=== PATIENT | male | born 1990 | race African-American/Black ===

== ENCOUNTER 2016-07-20 14:59 | Emergency (ER) | payer SELFPAY ==
[2016-07-20] MEDS ORDERED: LIDOCAINE 1% INJ-PF (10 MG/ML) 30 ML SDV INJ ONE (16:23)
[2016-07-20] MEDS ORDERED: AZITHROMYCIN 250 MG TABLET PO ONE (16:24)
--- NOTE | 2016-07-20 16:31 | ER Document Report ---
HPI - HPI Patient complains to provider of: burning with urination, cyst on left cheek Onset: Other Onset/Duration: Gradual Quality of pain: Burning Severity: Moderate Pain Level: 4 Context: Patient states he was told about one month ago by partner had an STD. Patient states he thinks he was told it was trichomonas. Patient states he just started having penile burning with urination 2-3 days ago, denies discharge. Also has a cyst underneath the skin on right cheek which has been there for several years. Would like it cut out today. Associated Symptoms: None Exacerbated by: Other - VOIDING Relieved by: Denies Similar symptoms previously: Yes Recently seen / treated by doctor: No - ROS ROS below otherwise negative: Yes Systems Reviewed and Negative: Yes All other systems reviewed and negative - CONSTITUTIONAL Constitutional: DENIES: Fever - EENT EENT: DENIES: Congestion - NEURO Neurology: DENIES: Headache - CARDIOVASCULAR Cardiovascular: DENIES: Chest pain - RESPIRATORY Respiratory: DENIES: Trouble Breathing - GASTROINTESTINAL Gastrointestinal: DENIES: Abdominal Pain - URINARY Urinary: REPORTS: Dysuria - MUSCULOSKELETAL Musculoskeletal: REPORTS: Extremity pain - DERM Skin Color: Normal Skin Problems: Cyst - LEFT CHEEK Past Medical History - General Information source: Patient - Social History Smoking Status: Current Some Day Smoker Chew tobacco use (# tins/day): No Frequency of alcohol use: Occasional Drug Abuse: None Lives with: Family Family History: Reviewed & Not Pertinent Patient has suicidal ideation: No Patient has homicidal ideation: No Pulmonary Medical History: Reports: Hx Tuberculosis - as child Renal/ Medical History: Denies: Hx Peritoneal Dialysis Surgical Hx: Negative - Immunizations Immunizations up to date: Yes Hx Diphtheria, Pertussis, Tetanus Vaccination: Yes Vertical Provider Document - CONSTITUTIONAL Agree With Documented VS: Yes Exam Limitations: No Limitations General Appearance: WD/WN, No Apparent Distress - INFECTION CONTROL TRAVEL OUTSIDE OF THE [place] IN LAST 30 DAYS: No - HEENT HEENT: Atraumatic, Normocephalic - RESPIRATORY Respiratory: Breath Sounds Normal, No Respiratory Distress O2 Sat by Pulse Oximetry: 98 - CARDIOVASCULAR Cardiovascular: Regular Rate, Regular Rhythm - GI/ABDOMEN Gastrointestinal: Abdomen Soft, Abdomen Non-Tender, Normal Bowel Sounds - MUSCULOSKELETAL/EXTREMETIES Musculoskeletal/Extremeties: BRENNON GRIER - NEURO Level of Consciousness: Awake, Alert, Appropriate - DERM Integumentary: Warm, Dry - Hard mobile cyst under skin over left cheek bone. No redness. Course - Vital Signs Vital signs: Temp Pulse Resp BP Pulse Ox 97.2 F 54 L 18 124/75 98 07/20/16 15:20 07/20/16 15:20 07/20/16 15:20 07/20/16 15:20 07/20/16 15:20 Discharge - Discharge Clinical Impression: Dysuria, STD exposure, Cyst, Gonorrhea Condition: Good Disposition: HOME, SELF-CARE Additional Instructions: Call back between 7:30 and 8 PM at [phone] for results of STD testing. You have been treated. Use condoms to prevent STDs Follow-up with [facility] for healthcare needs, and possible referral to dermatology or surgery for evaluation of cyst under skin over left cheek bone. Return as needed Prescriptions: Metronidazole [Flagyl 500 mg Tablet] 500 mg PO ONCE #4 tablet
[2016-07-20] MEDS ORDERED: CEFTRIAXONE INJ 250 MG VIAL IM ONE (16:42)
[2016-07-20 16:51] LABS: APPEARANCE,URINE CLEAR; BILIRUBIN,URINE NEGATIVE (NEGATIVE); GLUCOSE, URINE NEGATIVE (NEGATIVE); KETONES,URINE NEGATIVE (NEGATIVE); LEUKOCYTE ESTERASE,URINE SMALL (NEGATIVE); NITRITE,URINE NEGATIVE (NEGATIVE); PROTEIN,URINE NEGATIVE (NEGATIVE); URINE SPECIFIC GRAVITY 1.019; UROBILINOGEN,URINE NEGATIVE mg/dL (<2.0)
[2016-07-20 17:01] VITALS: BP 122/68
[2016-07-20 18:15] LABS: CHLAM PCR NOT DETECTED (NOT DETECT)
== END 2016-07-20 15:58 | disposition home or self-care (01) ==
LOC: ER 14:59
DX: A54.9 Gonococcal infection, unspecified (principal); L72.9 Follicular cyst of the skin and subcutaneous tissue, unspecified; F17.200 Nicotine dependence, unspecified, uncomplicated; R30.0 Dysuria
CPT/HCPCS: 99283; 96372; 81001; 87491; 87591; J3490; J0696

== ENCOUNTER 2016-10-06 01:14 | Emergency (ER) | payer SELFPAY | END 2016-10-06 03:28 | disposition left against medical advice (07) | LOC: ER 01:14 | DX: Z53.21 Procedure and treatment not carried out due to patient leaving prior to being seen by health care provider (principal) ==

== ENCOUNTER 2016-10-06 09:43 | Emergency (ER) | payer SELFPAY ==
--- NOTE | 2016-10-06 10:23 | ER Document Report ---
ED Medical Screen (RME) - General Chief Complaint: Headache Stated Complaint: HEAD PAIN Time Seen by Provider: 10/06/16 10:16 Mode of Arrival: Ambulatory Information source: Patient, [facility] Records TRAVEL OUTSIDE OF THE [place] IN LAST 30 DAYS: No - HPI Onset: Last week Onset/Duration: Gradual, Constant Quality of pain: Dull, Sharp Associated Symptoms: None Exacerbated by: Denies Similar symptoms previously: Yes Recently seen / treated by doctor: No Notes: 10/06/16 10:22 Patient is a 26-year-old male who has had a 1-1/2 week history of right-sided frontal headache. Patient came to the emergency department last night for same and left without being seen. Patient returns today for continued headache. Patient also reports some visual changes in the right eye. No focal neurologic complaints. No nausea vomiting. Patient does not have prior history of migraine headaches. Patient was able to drive himself to the emergency department without any difficulty. - Related Data Allergies/Adverse Reactions: No Known Allergies Allergy (Verified 10/06/16 09:53) Past Medical History - General Information source: Patient, [facility] Records - Social History Frequency of alcohol use: None Drug Abuse: None Pulmonary Medical History: Reports: Hx Tuberculosis - as child Renal/ Medical History: Denies: Hx Peritoneal Dialysis - Immunizations Immunizations up to date: Yes Hx Diphtheria, Pertussis, Tetanus Vaccination: Yes Review of Systems - Review of Systems Neurological/Psychological: Headaches -: Yes All other systems reviewed and negative Physical Exam - Vital signs Vitals: Temp Pulse Resp BP Pulse Ox 97.7 F 69 24 H 128/98 H 100 10/06/16 09:54 10/06/16 09:54 10/06/16 09:54 10/06/16 09:54 10/06/16 09:54 Interpretation: Normal - General General appearance: Appears well, Alert - HEENT Head: Normocephalic, Atraumatic Eyes: Normal Pupils: PERRL - Respiratory Respiratory status: No respiratory distress Chest status: Nontender Breath sounds: Normal Chest palpation: Normal - Cardiovascular Rhythm: Regular Heart sounds: Normal auscultation Murmur: No - Abdominal Inspection: Normal Distension: No distension Bowel sounds: Normal Tenderness: Nontender Organomegaly: No organomegaly - Back Back: Normal, Nontender - Extremities General upper extremity: Normal inspection, Nontender, Normal color, Normal ROM , Normal temperature General lower extremity: Normal inspection, Nontender, Normal color, Normal ROM , Normal temperature, Normal weight bearing. No: Alyce's sign - Neurological Neuro grossly intact: Yes Cognition: Normal Orientation: AAOx4 Renato Coma Scale Eye Opening: Spontaneous [place] Coma Scale Verbal: Oriented [place] Coma Scale Motor: Obeys Commands Renato Coma Scale Total: 15 Speech: Normal Motor strength normal: LUE, RUE, LLE, RLE Sensory: Normal - Psychological Associated symptoms: Normal affect, Normal mood - Skin Skin Temperature: Warm Skin Moisture: Dry Skin Color: Normal Course - Re-evaluation Re-evalutation: 10/06/16 11:03 Patient states he is feeling better after Toradol injection. CT negative. Patient anxious to go back to work. Will discharge home with understanding for primary care follow-up. - Vital Signs Vital signs: Temp Pulse Resp BP Pulse Ox 97.7 F 69 24 H 128/98 H 100 10/06/16 09:54 10/06/16 09:54 10/06/16 09:54 10/06/16 09:54 10/06/16 09:54 - Diagnostic Test Radiology reviewed: Reports reviewed Radiology results interpreted by me: 10/06/16 11:03 CT head negative per radiologist. Doctor's Discharge - Discharge Clinical Impression: Headache Condition: Good Disposition: HOME, SELF-CARE Instructions: Headache ([facility]) Additional Instructions: Follow-up with your primary care doctor or with Dr. Gordon. Return to the emergency department if worse or for any other problems. Prescriptions: Tramadol HCl 50 mg PO QID PRN #20 tablet PRN Reason: Mild Pain Referrals: CECILY GORDON MD [ACTIVE STAFF] - Follow up as needed
[2016-10-06] MEDS ORDERED: KETOROLAC TROMETHAMINE 60 MG/2 ML SDV IM ONE (10:28)
--- NOTE | 2016-10-06 10:35 | RADIOLOGY REPORT (SQ) ---
EXAM DESCRIPTION: CT HEAD WITHOUT COMPLETED DATE/TIME: 10/06/2016 10:23 am REASON FOR STUDY: headache COMPARISON: None. TECHNIQUE: Axial images acquired through the brain without intravenous contrast. Images reviewed wi th bone, brain and subdural windows. Images stored on PACS. All CT scanners at this facility use dose modulation, iterative reconstruction, and/or weight based d osing when appropriate to reduce radiation dose to as low as reasonably achievable ([facility]). [facility]: Dose Right [facility]: CareDose [facility]: Dose Right [facility]: Teradose 4D [facility]: [employer] RADIATION DOSE: Up-to-date CT equipment and radiation dose reduction techniques were employed. CTDIv ol: 64.6 mGy. DLP: 1292 mGy-cm. mGy. LIMITATIONS: None. FINDINGS: VENTRICLES: Normal size and contour. CEREBRUM: No masses. No hemorrhage. No midline shift. Normal yo/white matter differentiation. N o evidence for acute infarction. CEREBELLUM: No masses. No hemorrhage. No alteration of density. No evidence for acute infarction. EXTRAAXIAL SPACES: No fluid collections. No masses. ORBITS AND GLOBE: No intra- or extraconal masses. Normal contour of globe without masses. CALVARIUM: No fracture. PARANASAL SINUSES: No fluid or mucosal thickening. SOFT TISSUES: No mass or hematoma. OTHER: No other significant finding. IMPRESSION: NORMAL BRAIN CT WITHOUT CONTRAST. TECHNICAL DOCUMENTATION: JOB ID: [id number] Quality ID # [id number]: Final reports with documentation of one or more dose reduction techniques (e.g., Au tomated exposure control, adjustment of the mA and/or kV according to patient size, use of iterative reconstruction technique) 2010 [employer]- All Rights Reserved
[2016-10-06 11:13] VITALS: BP 132/96
== END 2016-10-06 11:10 | disposition home or self-care (01) ==
LOC: ER 09:43
DX: R51 Headache (principal); H53.9 Unspecified visual disturbance; Z86.69 Personal history of other diseases of the nervous system and sense organs
CPT/HCPCS: 99284; 96372; 70450; J1885

== ENCOUNTER 2016-10-07 13:27 | Emergency (ER) | payer SELFPAY ==
[2016-10-07] MEDS ORDERED: KETOROLAC TROMETHAMINE INJ/PF 30 MG/1 ML SDV IV ONE (14:33)
[2016-10-07] MEDS ORDERED: DIPHENHYDRAMINE HCL 50 MG/ML VIAL IV ONE (14:33)
[2016-10-07] MEDS ORDERED: PROCHLORPERAZINE EDISYLATE INJ 10 MG/2 ML VIAL IV ONE (14:33)
[2016-10-07] MEDS ORDERED: NORMAL SALINE 1000 ML 1,000 ML IV ONE (14:34)
--- NOTE | 2016-10-07 14:41 | ER Document Report ---
HPI - HPI Pain Level: 4 Notes: Patient is a 26-year-old male presents the ED complaining of another migraine 2 hours right posterior orbit. Patient states that he has been to the ED over the past couple days for this similar recurrent migraine. Patient was evaluated yesterday with a negative CT scan of the head. Patient states that the Toradol injection that he had yesterday took away his pain and then he went to work and the pain started coming back after about 4 hours. He was sent home on tramadol, but patient states that only upset his stomach and does not help with his headache. Patient states that currently he does have light sensitivity and a prodromal syndrome of seeing spots in his eyes. He denies any radiation of the pain. He does not have any nausea. Patient states that he does not want to open the eye because of the light sensitivity, but otherwise he can still see out of the eye. He denies any recent head injury. Patient states that he has been getting this migraine over the last couple weeks intermittently. Denies any drug allergies. Denies any daily medications. Denies any significant past medical history. He does not have a primary care provider. He still eating and drinking without any problems. Denies any fever, URI, sore throat, dysphagia, dysphasia, chest pain, palpitations, syncope, cough, shortness of breath, wheeze, abdominal pain, nausea/vomiting/diarrhea, dysuria, hematuria, urinary retention, joint pains, muscle ache, seizure, or rash. Patient denies any recent travel/sick contacts/ illness. Patient denies smoking or any IV drug use. - ROS Notes: REVIEW OF SYSTEMS: CONSTITUTIONAL : Denies fever, chills, or sweats. Denies recent illness. EENT: Denies eye, ear, throat, or mouth pain or symptoms. Denies nasal or sinus congestion or discharge. Denies throat, tongue, or mouth swelling or difficulty swallowing. CARDIOVASCULAR: Denies chest pain. Denies palpitations or racing or irregular heart beat. Denies ankle edema. RESPIRATORY: Denies cough, cold, or chest congestion. Denies shortness of breath, difficulty breathing, or wheezing. GASTROINTESTINAL: Denies abdominal pain or distention. Denies nausea, vomiting , or diarrhea. Denies blood in vomitus, stools, or per rectum. Denies black, tarry stools. Denies constipation. GENITOURINARY: Denies difficulty urinating, painful urination, burning, frequency, blood in urine, or discharge. MUSCULOSKELETAL: Denies back or neck pain or stiffness. Denies joint pain or swelling. SKIN: Denies rash, lesions or sores. NEUROLOGICAL: see hpi ALL OTHER SYSTEMS REVIEWED AND NEGATIVE. Dictation was performed using [employer] voice recognition software - CARDIOVASCULAR Cardiovascular: DENIES: Chest pain - DERM Skin Color: Normal Past Medical History - Social History Smoking Status: Never Smoker Frequency of alcohol use: None Drug Abuse: None Family History: Reviewed & Not Pertinent Patient has suicidal ideation: No Patient has homicidal ideation: No Pulmonary Medical History: Reports: Hx Tuberculosis - as child Renal/ Medical History: Denies: Hx Peritoneal Dialysis Surgical Hx: Negative - Immunizations Immunizations up to date: Yes Hx Diphtheria, Pertussis, Tetanus Vaccination: Yes Vertical Provider Document - CONSTITUTIONAL Agree With Documented VS: Yes Notes: PHYSICAL EXAMINATION: GENERAL: Well-appearing, well-nourished and in no acute distress. Covering right eye. HEAD: Atraumatic, normocephalic. EYES: Pupils equal round and reactive to light, extraocular movements intact, sclera anicteric, conjunctiva are normal. ENT: EAC clear b/l. TM's intact b/l without erythema, fluid, or perforation. Nares patent and without discharge. oropharynx clear without exudates. No tonsilar hypertrophy or erythema. Moist mucous membranes. No sinus tenderness. No facial swelling. NECK: Normal range of motion, supple without lymphadenopathy. No rigidity/ meningismus. LUNGS: Breath sounds clear to auscultation bilaterally and equal. No wheezes rales or rhonchi. HEART: Regular rate and rhythm without murmurs, rubs, gallops. ABDOMEN: Soft, nontender, nondistended abdomen. No guarding, no rebound. No masses appreciated. Normal bowel sounds present. No CVA tenderness bilaterally. Musculoskeletal: Ext b/l: FROM to passive/active. Strength 5+/5. Extremities: No cyanosis, clubbing, or edema b/l. Peripheral pulses 2+. Capillary refill less than 2 seconds. NEUROLOGICAL: MMSE intact. Cranial nerves grossly intact. Normal speech, normal gait. Normal sensory, motor exams PSYCH: Normal mood, normal affect. SKIN: Warm, Dry, normal turgor, no rashes or lesions noted. - INFECTION CONTROL TRAVEL OUTSIDE OF THE [place] IN LAST 30 DAYS: No - RESPIRATORY O2 Sat by Pulse Oximetry: 100 Course - Re-evaluation Re-evalutation: 10/07/16 17:15 Is an afebrile, well-hydrated, 18-year-old male presents the ED with a headache suspect migraine based on H&P. Vitals are stable. PE otherwise unremarkable for any focal neurological deficits. Low suspicion for any acute glaucoma, temporal arteritis, meningitis, intracranial hemorrhage, CVA, or systemic infection at this time. Compazine 10 mg IV, Benadryl 50 mg IV, Toradol 30 mg IV , and 1 L bolus saline provided today. Headache resolved upon discharge/ recheck. I will send him home with imitrex to use as abortive therapy along with PO toradol. Conservative measures otherwise for symptoms. Consider wearing sunglasses outside working. Recheck/establish with a PCM this week for further evaluation and consideration for prophylactic therapy. Return to the ED with any worsening/concerning symptoms otherwise as reviewed. Patient is in agreement. 10/07/16 17:22 Upon re-eval prior to discharge. Pt states his VALLEJO is gone and is feeling great. Pt denies any other fatigue or drowsiness from the medications. Pt states he is ready to go home. Nurse to test patient ambulatory to make sure he is stable, then discharge ready. - Vital Signs Vital signs: Temp Pulse Resp BP Pulse Ox 98.0 F 70 20 133/83 H 100 10/07/16 13:36 10/07/16 13:36 10/07/16 13:36 10/07/16 13:36 10/07/16 13:36 Discharge - Discharge Clinical Impression: Headache Qualifiers: Headache type: unspecified Headache chronicity pattern: acute headache Intractability: intractable Qualified Code(s): R51 - Headache Condition: Stable Disposition: HOME, SELF-CARE Instructions: Intravenous Compazine for Headaches ([facility]), Use of Diphenhydramine , Headache ([facility]), Toradol Injection ([facility]), Migraine Headache ([facility]) Additional Instructions: Take medications as directed Wear sunglasses outside Maintain adequate fluid intake OTC meds as needed Recheck/establish with a PCM this week for further evaluation and consideration for prophylactic medication therapy for migraines Consider consult with a neurologist Return to the ED with any worsening symptoms and/or development of fever, headache, chest pain, palpitations, syncope, shortness of breath, trouble breathing, abdominal pain, n/v/d,loss of control of bowel/bladder, urinary retention, muscle weakness/paralysis, numbness/tingling, or other worsening symptoms that are concerning to you. Prescriptions: Ketorolac Tromethamine [Toradol 10 mg Tablet] 10 mg PO Q6HP PRN #30 tablet PRN Reason: Sumatriptan [Imitrex 20 Mg Nasal [place] Ud] 20 mg NASL ONCE PRN #1 spray PRN Reason: Forms: Elevated Blood Pressure Referrals: [facility] [Provider Group] - Follow up as needed [facility] [Provider Group] - Follow up as needed NEUROLOGY [Provider Group] - Follow up as needed
[2016-10-07 17:56] VITALS: BP 118/80
== END 2016-10-07 17:45 | disposition home or self-care (01) ==
LOC: ER 13:27
DX: R51 Headache (principal); Z79.899 Other long term (current) drug therapy
CPT/HCPCS: 99283; 96361; 96374; 96375; J1200; J1885; J0780; J7030

== ENCOUNTER 2016-10-12 13:59 | Emergency (ER) | payer SELFPAY ==
[2016-10-12] MEDS ORDERED: KETOROLAC TROMETHAMINE INJ/PF 30 MG/1 ML SDV IV ONE (14:23)
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
[2016-10-12] MEDS ORDERED: MORPHINE SULFATE 10 MG/ML INJ IV ONE (14:24)
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
[2016-10-12 16:51] VITALS: BP 128/82
== END 2016-10-12 15:50 | disposition home or self-care (01) ==
LOC: ER 13:59
DX: G44.209 Tension-type headache, unspecified, not intractable (principal); Z87.828 Personal history of other (healed) physical injury and trauma
CPT/HCPCS: 99284; 96374; 96375; J1885; J2270

== ENCOUNTER 2017-05-11 18:51 | Emergency (ER) | payer SELFPAY ==
--- NOTE | 2017-05-11 19:54 | ER Document Report ---
ED GI/ - General Chief Complaint: Urinary Problem Stated Complaint: PAINFUL URINATION Time Seen by Provider: 05/11/17 19:26 Mode of Arrival: Ambulatory Information source: Patient Notes: 27-year-old male presents to ED for complaint of painful urination with white discharge from his penis 3 days. He states he had some unprotected sex on Tuesday and he started having discharge by morning. TRAVEL OUTSIDE OF THE [place] IN LAST 30 DAYS: No - HPI Patient complains to provider of: Other - Burning with urination and penile discharge Onset: Other - 3 days Timing/Duration: Gradual Quality of pain: Burning Severity at maximum: Moderate Severity in ED: Mild Pain Level: 4 Location: Other - Penile discharge Associated symptoms: Other - Penile discharge and burning with urination Exacerbated by: Other - Urination Relieved by: Denies Similar symptoms previously: No Recently seen / treated by doctor: No - Related Data Allergies/Adverse Reactions: No Known Allergies Allergy (Verified 05/11/17 18:53) Past Medical History - General Information source: Patient - Social History Smoking Status: Former Smoker Cigarette use (# per day): No Chew tobacco use (# tins/day): No Smoking Education Provided: No Frequency of alcohol use: Rare Drug Abuse: None Occupation: Construction Lives with: Friend - "baby mama " Family History: Malignancy. 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 EENT Medical History: Reports: None Neurological Medical History: Reports: None Endocrine Medical History: Reports: None Renal/ Medical History: Reports: None Malignancy Medical History: Reports None GI Medical History: Reports: None Musculoskeltal Medical History: Reports None Skin Medical History: Reports None Psychiatric Medical History: Reports: None Traumatic Medical History: Reports: None Infectious Medical History: Reports: None Surgical Hx: Negative Past Surgical History: Reports: None - Immunizations Immunizations up to date: Yes Hx Diphtheria, Pertussis, Tetanus Vaccination: Yes Review of Systems - Review of Systems Notes: Constitutional: [PRESENT: as per HPI. ABSENT: chills, fever(s), headache(s), weight gain, weight loss] Eyes: [ABSENT: visual disturbances] Ears: [ABSENT: hearing changes] Cardiovascular: [ABSENT: chest pain, dyspnea on exertion, edema, orthropnea, palpitations] Respiratory: [ABSENT: cough, hemoptysis] Gastrointestinal: [ABSENT: abdominal pain, constipation, diarrhea, hematemesis, hematochezia, nausea, vomiting] Genitourinary: Painful urination and penile discharge white] Musculoskeletal: [ABSENT: joint swelling] Integumentary: [ABSENT: rash, wounds] Neurological: [ABSENT: abnormal gait, abnormal speech, confusion, dizziness, focal weakness, syncope] Psychiatric: [ABSENT: anxiety, depression, homicidal ideation, suicidal ideation ] Endocrine: [ABSENT: cold intolerance, heat intolerance, menstrual abnormalities , polydipsia, polyuria] Hematologic/Lymphatic: [ABSENT: easy bleeding, easy bruising, lymphadenopathy] Physical Exam - Vital signs Vitals: Temp Pulse Resp BP Pulse Ox 98.5 F 59 L 16 141/79 H 98 05/11/17 18:57 05/11/17 18:57 05/11/17 18:57 05/11/17 18:57 05/11/17 18:57 - Notes Notes: PHYSICAL EXAMINATION: GENERAL: Well-appearing, well-nourished and in no acute distress. HEAD: Atraumatic, normocephalic. EYES: Pupils equal round and reactive to light, extraocular movements intact, sclera anicteric, conjunctiva are normal. ENT: Nares patent, oropharynx clear without exudates. Moist mucous membranes. NECK: Normal range of motion, supple without lymphadenopathy LUNGS: Breath sounds clear to auscultation bilaterally and equal. No wheezes rales or rhonchi. HEART: Regular rate and rhythm without murmurs ABDOMEN: Soft, nontender, nondistended abdomen. No guarding, no rebound. No masses appreciated. Genitourinary: White penile discharge, no redness no excoriation, no lesions. Musculoskeletal: Normal range of motion, no pitting or edema. No cyanosis. NEUROLOGICAL: Cranial nerves grossly intact. Normal speech, normal gait. Normal sensory, motor exams PSYCH: Normal mood, normal affect. SKIN: Warm, Dry, normal turgor, no rashes or lesions noted. Course - Re-evaluation Re-evalutation: 05/11/17 21:21 Urinalysis was negative for UTI. Patient was treated with Rocephin and azithromycin for his penile discharge and urethritis. Patient was instructed no sexual intercourse for the next 5 days and that he needed to call the culture line at [phone] tomorrow to find out the results of his GC and chlamydia. Patient states if these cultures were negative that he is to have no unprotected sex for at least 5 days and to please notify his last partner. Patient verbalized understanding of his discharge instructions. When asked if he had any further questions or concerns he stated no. - Vital Signs Vital signs: Temp Pulse Resp BP Pulse Ox 98.2 F 56 L 16 125/86 H 99 05/11/17 21:08 05/11/17 21:08 05/11/17 18:57 05/11/17 21:08 05/11/17 21:08 Discharge - Discharge Clinical Impression: Urethritis Condition: Stable Disposition: HOME, SELF-CARE Instructions: Family Physicians / Practices Additional Instructions: Urethritis You have urethritis, an infection of the urethra. The usual symptoms are pain on urination and discharge. The infection is often caused by gonorrhea or chlamydia. Treatment is antibiotics. In addition, any sexual contacts should be evaluated by a physician as soon as possible. As this infection can be transmitted sexually, refrain from sexual activity until the infection is confirmed as healed by your physician. If gonorrhea or chlamydia is found on culture, the health department must be notified. Call the doctor at once if you develop difficulty passing your urine, high fever, rash, joint swelling, or other new symptoms. CEPHALOSPORINS: An antibiotic of the cephalosporin class has been prescribed. This type of antibiotic covers a wide variety of infections, including those of the skin, lungs, middle ear, and urinary tract. This antibiotic is somewhat similar to the penicillin family. In rare cases , a person who is allergic to penicillin will also be allergic to this medication. If you have had a severe allergic reaction to penicillin, and have not taken this antibiotic since that time, notify your doctor. Antibiotics which cover many germs ("broad spectrum" antibiotics) are more likely to cause diarrhea or "yeast" infections. Women prone to vaginal yeast problems may suffer an attack after taking this antibiotic. In infants, oral thrush (white spots "stuck" on the cheek) or yeast diaper rash may result. See your doctor if these problems occur. Call the doctor at once if you develop hives, itching, shortness of breath , or lightheadedness. AZITHROMYCIN: Azithromycin (Zithromax) is a broad spectrum antibiotic in the same class as erythromycin. It can treat a variety of bacterial infections, but is most frequently used for respiratory infections. Azithromycin is extremely long-lasting. It accumulates in body tissues and continues to kill bacteria for many days. In order to improve absorption, Azithromycin should be taken at least one hour before or two hours after a meal. It does not have the same strong tendency to upset the stomach as erythromycin and is usually very well tolerated. Patients who have had a rash or other true allergic reactions to erythromycin should not take this medication. Call if you develop gastrointestinal distress, severe diarrhea, rash, hives, itching, or shortness of breath. FOLLOW-UP CARE: If you have been referred to a physician for follow-up care, call the physician s office for an appointment as you were instructed or within the next two days. If you experience worsening or a significant change in your symptoms, notify the physician immediately or return to the Emergency Department at any time for re-evaluation. Forms: Elevated Blood Pressure Referrals: AZALEA RUBIO MD [Primary Care Provider] - Follow up as needed
[2017-05-11 20:16] LABS: APPEARANCE,URINE CLEAR; BILIRUBIN,URINE NEGATIVE (NEGATIVE); COLOR,URINE YELLOW; GLUCOSE, URINE NEGATIVE (NEGATIVE); KETONES,URINE NEGATIVE (NEGATIVE); LEUKOCYTE ESTERASE,URINE NEGATIVE (NEGATIVE); NITRITE,URINE NEGATIVE (NEGATIVE); PROTEIN,URINE NEGATIVE (NEGATIVE); URINE SPECIFIC GRAVITY 1.016; UROBILINOGEN,URINE NEGATIVE mg/dL (<2.0)
[2017-05-11] MEDS ORDERED: LIDOCAINE 1% INJ-PF (10 MG/ML) 30 ML SDV INJ ONE (20:19)
[2017-05-11] MEDS ORDERED: CEFTRIAXONE INJ 250 MG VIAL IM ONE (20:19)
[2017-05-11] MEDS ORDERED: AZITHROMYCIN 250 MG TABLET PO ONE (20:19)
[2017-05-11 21:10] VITALS: BP 125/86
[2017-05-11 21:31] LABS: CHLAM PCR NOT DETECTED (NOT DETECT); GON PCR DETECTED (NOT DETECT)
== END 2017-05-11 21:14 | disposition home or self-care (01) ==
LOC: ER 18:51
DX: N34.2 Other urethritis (principal); R30.0 Dysuria; Z87.891 Personal history of nicotine dependence
CPT/HCPCS: 99283; 96372; 81001; 87491; 87591; J3490; J0696

== ENCOUNTER 2017-09-14 09:36 | Emergency (ER) | payer OTHER ==
[2017-09-14 09:42] VITALS: BP 133/77
--- NOTE | 2017-09-14 09:57 | ER Document Report ---
HPI - HPI Patient complains to provider of: Right hand injury Pain Level: 5 Context: 27-year-old healthy male presents to the ED complaining of pain to his right hand times several weeks. Patient reports that he punched a wall approximately 3 weeks ago and has been dealing with the pain until yesterday when he was working and trying to lift some lumbar and the pain became unbearable. Patient reports pain to his right fourth and fifth metacarpals and ulnar styloid area Associated Symptoms: None Exacerbated by: Movement Relieved by: Denies Similar symptoms previously: No Recently seen / treated by doctor: No - ROS Systems Reviewed and Negative: Yes All other systems reviewed and negative Past Medical History - General Information source: Patient - Social History Smoking Status: Current Every Day Smoker Frequency of alcohol use: None Lives with: Family Family History: Malignancy. denies: Arthritis, CAD, COPD, CVA, DM, Hyperlipidemia, Hypertension, Thyroid Disfunction Pulmonary Medical History: Reports: Hx Tuberculosis - as child Renal/ Medical History: Denies: Hx Peritoneal Dialysis - Immunizations Immunizations up to date: Yes Hx Diphtheria, Pertussis, Tetanus Vaccination: Yes Vertical Provider Document - CONSTITUTIONAL Agree With Documented VS: Yes Exam Limitations: No Limitations General Appearance: WD/WN, No Apparent Distress - INFECTION CONTROL TRAVEL OUTSIDE OF THE [place] IN LAST 30 DAYS: No - HEENT HEENT: Atraumatic, PERRLA - NECK Neck: Supple - RESPIRATORY Respiratory: No Respiratory Distress - MUSCULOSKELETAL/EXTREMETIES Musculoskeletal/Extremeties: Tender - Focal tenderness over proximal fifth metacarpal and right ulnar styloid. No deformity or edema appreciated. Distal sensory motor circulation intact. Course - Re-evaluation Re-evalutation: 09/14/17 10:16 X-rays negative for fracture. These results were discussed with the patient I estimate there is LOW risk for OPEN FRACTURE, COMPARTMENT SYNDROME, ACUTE TENDON RUPTURE, or NEUROVASCULAR INJURY thus I consider the discharge disposition reasonable. I have reevaluated this patient multiple times and no significant life threatening changes are noted. The patient and I have discussed the diagnosis and risks, and we agree with discharging home to closely follow-up with their primary doctor or the referral orthopedist with the understanding that symptoms and presentations can change. We also discussed returning to the Emergency Department immediately if new or worsening symptoms occur. We have discussed the symptoms which are most concerning (e.g., changing or worsening pain, numbness, weakness) that necessitate immediate return - Vital Signs Vital signs: Temp Pulse Resp BP Pulse Ox 97.9 F 58 L 16 133/77 H 99 09/14/17 09:41 09/14/17 09:41 09/14/17 09:41 09/14/17 09:41 09/14/17 09:41 Procedures - Immobilization right wrist Pre-Proc Neuro Vasc Exam: Normal Immobilizer type: Sumeet wrap Performed by: PCT Post-Proc Neuro Vasc Exam: Normal Alignment checked and good: Yes Discharge - Discharge Clinical Impression: Contusion of right hand Qualifiers: Encounter type: initial encounter Qualified Code(s): S60.221A - Contusion of right hand, initial encounter Right wrist sprain Qualifiers: Encounter type: initial encounter Qualified Code(s): S63.501A - Unspecified sprain of right wrist, initial encounter Condition: Stable Disposition: HOME, SELF-CARE Instructions: Contusion ([facility]), Wrist Sprain ([facility]), Sumeet Wrap ([facility]), Ice & Elevation ([facility]), Ibuprofen (General) ([facility]) Additional Instructions: Your x-rays were negative for fracture. Wear Sumeet wrap for support and comfort Ice and elevate the injury as much as possible Ibuprofen for discomfort Follow-up with your primary care if pain persists You may follow-up with [facility] or so for further evaluation if pain persists contact information is given below: Rick (Priyank) Address: [address] [place] [address] Open today 8AM5PM Prescriptions: Ibuprofen [Motrin 800 Mg Tablet] 800 mg PO Q6H #20 tablet Forms: Return to Work Referrals: AZALEA RUBIO MD [Primary Care Provider] - Follow up as needed
--- NOTE | 2017-09-14 10:26 | RADIOLOGY REPORT (SQ) ---
EXAM DESCRIPTION: WRIST RIGHT 3 VIEWS COMPLETED DATE/TIME: 09/14/2017 10:14 am REASON FOR STUDY: pain to 5th metacarpal and ulnar styloid COMPARISON: None. NUMBER OF VIEWS: Three views. TECHNIQUE: AP, lateral, and oblique radiographic images acquired of the right wrist. LIMITATIONS: None. FINDINGS: MINERALIZATION: Normal. BONES: No acute fracture or dislocation. No worrisome bone lesions. Normal alignment. SOFT TISSUES: No metallic foreign bodies. OTHER: If an occult fracture suspected clinically, consider followup imaging. IMPRESSION: No acute fractures identified. TECHNICAL DOCUMENTATION: JOB ID: [id number] [employer]- All Rights Reserved Reading location - IP/workstation name: [email or web address]
--- NOTE | 2017-09-14 10:28 | RADIOLOGY REPORT (SQ) ---
EXAM DESCRIPTION: HAND RIGHT 3 VIEWS COMPLETED DATE/TIME: 09/14/2017 10:14 am REASON FOR STUDY: pain to 5th metacarpal and ulnar styloid COMPARISON: None. EXAM PARAMETERS: NUMBER OF VIEWS: Three views. TECHNIQUE: AP, lateral and oblique radiographic images acquired of the right hand. LIMITATIONS: None. FINDINGS: MINERALIZATION: Normal. BONES: No acute fracture or dislocation. No worrisome bone lesions. JOINTS: Joint spaces intact. SOFT TISSUES: No metallic foreign bodies. OTHER: No other significant finding. IMPRESSION: No acute fractures identified. TECHNICAL DOCUMENTATION: JOB ID: [id number] [employer]- All Rights Reserved Reading location - IP/workstation name: [email or web address]
== END 2017-09-14 10:28 | disposition home or self-care (01) ==
LOC: ER 09:36
DX: S63.501A Unspecified sprain of right wrist, initial encounter (principal); S60.221A Contusion of right hand, initial encounter; M79.641 Pain in right hand; W22.01XA Walked into wall, initial encounter; Y99.0 Civilian activity done for income or pay; F17.200 Nicotine dependence, unspecified, uncomplicated
CPT/HCPCS: 99283

== ENCOUNTER 2017-11-05 11:25 | Emergency (ER) | payer SELFPAY ==
[2017-11-05 11:33] VITALS: BP 116/83
[2017-11-05] MEDS ORDERED: KETOROLAC TROMETHAMINE INJ/PF 30 MG/1 ML SDV IV ONE (11:52)
[2017-11-05] MEDS ORDERED: RINGERS SOLUTION,LACTATED 1,000 ML IV ONE (11:52)
[2017-11-05] MEDS ORDERED: DEXAMETHASONE SOD PHOS INJ 10 MG/1 ML VIAL IM ONE (11:52)
[2017-11-05 12:37] LABS: ABSOLUTE EOSINOPHILS # (AUTO) 0.3 10^3/uL (0.0-0.6); ABSOLUTE LYMPHOCYTES (AUTO) 2.8 10^3/uL (0.5-4.7); ABSOLUTE MONOCYTES (AUTO) 1.1 10^3/uL (0.1-1.4); BASOPHILS % (AUTO) 0.7 % (0-2); EOSINOPHILS % (AUTO) 5.5 % (0-6); HEMATOCRIT 46.9 % (37.9-51.0); HEMOGLOBIN 14.7 g/dL (13.5-17.0); LYMPHOCYTES % (AUTO) 44.3 % (13-45); MEAN CORPUSCULAR HEMOGLOBIN 22.2 pg (27.0-33.4); MEAN CORPUSCULAR HGB CONC 31.4 g/dL (32.0-36.0); MEAN CORPUSCULAR VOLUME 71 fl (80-97); MONOCYTES % (AUTO) 17.6 % (3-13); PLATELET COUNT 228 10^3/uL (150-450); RED BLOOD COUNT 6.61 10^6/uL (4.35-5.55); RED CELL DISTRIBUTION WIDTH 14.5 % (11.5-14.0); SEGMENTED NEUTROPHILS % (AUTO) 31.9 % (42-78); TOTAL CELLS COUNTED % (AUTO) 100 %; WHITE BLOOD COUNT 6.2 10^3/uL (4.0-10.5)
[2017-11-05 12:50] LABS: ALANINE AMINOTRANSFERASE 39 U/L (21-72); ALBUMIN 4.6 g/dL (3.5-5.0); ALKALINE PHOSPHATASE 55 U/L (38-126); ANION GAP 15 (5-19); ASPARTATE AMINO TRANSFERASE 34 U/L (17-59); BILIRUBIN,DIRECT 0.4 mg/dL (0.0-0.4); BILIRUBIN,TOTAL 0.8 mg/dL (0.2-1.3); BLOOD UREA NITROGEN 13 mg/dL (7-20); C-REACTIVE PROTEIN 30.3 mg/L (<10.0); CALCIUM 9.4 mg/dL (8.4-10.2); CARBON DIOXIDE 25 mmol/L (22-30); CHLORIDE 104 mmol/L (98-107); GLUCOSE 94 mg/dL (75-110); POTASSIUM 4.9 mmol/L (3.6-5.0); SODIUM 144.3 mmol/L (137-145); TOTAL PROTEIN 8.5 g/dL (6.3-8.2)
--- NOTE | 2017-11-05 13:12 | RADIOLOGY REPORT (SQ) ---
EXAM DESCRIPTION: CT SOFT TISSUE NECK WITH COMPLETED DATE/TIME: 11/05/2017 1:01 pm REASON FOR STUDY: sore throat enlarged uvula and tonsils COMPARISON: None. TECHNIQUE: Post IV contrasted scanning from skull base through lung apices with review of bone, soft tissue and lung windows. Reconstructed coronal and sagittal MPR images reviewed. All images stored on PACS. All CT scanners at this facility use dose modulation, iterative reconstruction, and/or weight based d osing when appropriate to reduce radiation dose to as low as reasonably achievable (ALARA). [facility]: Dose Right [facility]: CareDose [facility]: Dose Right [facility]: Teradose 4D [facility]: Evocalize CONTRAST TYPE AND DOSE: contrast/concentration: Isovue 350.00 mg/ml; Total Contrast Delivered: 75.0 ml; Total Saline Delivered: 55.0 ml RENAL FUNCTION: None required. The patient is less than 50 years old. RADIATION DOSE: CT Rad equipment meets quality standard of care and radiation dose reduction techniq ues were employed. CTDIvol: 12.1 mGy. DLP: 376 mGy-cm. . LIMITATIONS: None. FINDINGS: SKULL BASE: Intact. MAJOR SALIVARY GLANDS: No solid or cystic masses. No inflammatory changes. LYMPHADENOPATHY: No adenopathy. MUCOSAL MASSES OR ASYMMETRY: Swelling in the palatini tonsillar pillars which is fairly symmetric yani aterally. This results in significant narrowing of the nasopharynx. No abscess identified. LARYNX/CORDS: No abnormal findings. VASCULAR STRUCTURES: The major vessels are patent. LUNG APICES: Clear. BONES: Intact. THYROID: Normal size. No masses. PARANASAL SINUSES: Clear. OTHER: No other significant finding. IMPRESSION: Tonsillitis. No abscess. TECHNICAL DOCUMENTATION: JOB ID: [id number] Quality ID # [id number]: Final reports with documentation of one or more dose reduction techniques (e.g., Au tomated exposure control, adjustment of the mA and/or kV according to patient size, use of iterative reconstruction technique) 2010 [employer]- All Rights Reserved Reading location - IP/workstation name: [email or web address]
[2017-11-05 13:15] LABS: ERYTHROCYTE SEDIMENTATION RATE 16 mm/hr (0-15)
--- NOTE | 2017-11-05 13:46 | ER Document Report ---
ED ENT - General Chief Complaint: Sore Throat Stated Complaint: SORE THROAT Time Seen by Provider: 11/05/17 11:43 Mode of Arrival: Ambulatory Information source: Patient Notes: 27-year-old male presented ED for complaint of sore throat with enlarged tonsils and uvula. He states he was having very difficulty swallowing. He does have a muffled voice. TRAVEL OUTSIDE OF THE [place] IN LAST 30 DAYS: No - HPI Patient complains to provider of: Throat problem Onset: Other - Several days Onset/Duration: Gradual Severity: Moderate Pain Level: 4 Context: Recent Illness Location of pain: Throat Associated symptoms: Drooling, Sore throat, Swollen glands, Other - Swollen uvula Similar symptoms previously: No Recently seen / treated by doctor: No - Related Data Allergies/Adverse Reactions: No Known Allergies Allergy (Verified 11/05/17 11:26) Past Medical History - General Information source: Patient - Social History Smoking Status: Never Smoker Cigarette use (# per day): No Chew tobacco use (# tins/day): No Smoking Education Provided: No Frequency of alcohol use: None Drug Abuse: None Lives with: Family Family History: Malignancy. 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 EENT Medical History: Reports: None Neurological Medical History: Reports: None Endocrine Medical History: Reports: None Renal/ Medical History: Reports: None Malignancy Medical History: Reports None GI Medical History: Reports: None Musculoskeletal Medical History: Reports None Skin Medical History: Reports None Psychiatric Medical History: Reports: None Traumatic Medical History: Reports: None Infectious Medical History: Reports: None Surgical Hx: Negative Past Surgical History: Reports: None - Immunizations Immunizations up to date: Yes Hx Diphtheria, Pertussis, Tetanus Vaccination: Yes Review of Systems - Review of Systems Constitutional: No symptoms reported EENT: Throat pain, Difficulty swallowing, Mouth pain, Other - Very enlarged uvula Cardiovascular: No symptoms reported Respiratory: No symptoms reported Gastrointestinal: No symptoms reported Genitourinary: No symptoms reported Male Genitourinary: No symptoms reported Musculoskeletal: No symptoms reported Skin: No symptoms reported Hematologic/Lymphatic: No symptoms reported Neurological/Psychological: No symptoms reported -: Yes All other systems reviewed and negative Physical Exam - Vital signs Vitals: Temp Pulse BP Pulse Ox 98.6 F 56 L 116/83 100 11/05/17 11:30 11/05/17 11:30 11/05/17 11:30 11/05/17 11:30 Interpretation: Normal - General General appearance: Appears well, Alert - HEENT Head: Normocephalic, Atraumatic Eyes: Normal Pupils: PERRL Ears: Normal External canal: Normal Tympanic membrane: Normal Sinus: Normal Nasal: Normal Mouth/Lips: Normal Mucous membranes: Normal Pharynx: Erythema, Exudate, Post nasal drainage, Tonsillar hypertrophy, Uvular edema Neck: Anterior cervical chain - Respiratory Respiratory status: No respiratory distress Chest status: Nontender Breath sounds: Normal Chest palpation: Normal - Cardiovascular Rhythm: Regular Heart sounds: Normal auscultation Murmur: No - Abdominal Inspection: Normal Distension: No distension Bowel sounds: Normal Tenderness: Nontender Organomegaly: No organomegaly - Back Back: Normal, Nontender - Extremities General upper extremity: Normal inspection, Nontender, Normal color, Normal ROM , Normal temperature General lower extremity: Normal inspection, Nontender, Normal color, Normal ROM , Normal temperature, Normal weight bearing. No: Alyce's sign - Neurological Neuro grossly intact: Yes Cognition: Normal Orientation: AAOx4 [place] Coma Scale Eye Opening: Spontaneous [place] Coma Scale Verbal: Oriented [place] Coma Scale Motor: Obeys Commands [place] Coma Scale Total: 15 Speech: Normal Motor strength normal: LUE, RUE, LLE, RLE Sensory: Normal - Psychological Associated symptoms: Normal affect, Normal mood - Skin Skin Temperature: Warm Skin Moisture: Dry Skin Color: Normal Course - Re-evaluation Re-evalutation: 11/05/17 13:47 Patient was treated with Toradol Decadron IV. Labs were drawn and soft tissue with contrast CT was completed and results were discussed with Dr. Ewing the ENT doctor. He stated to give Decadron today which I have already done and to send him home with 2 days of p.o. Decadron and if patient was still having a sore throat he can follow-up with primary doctor or if he continued to have discomfort to having follow-up with Dr. Guevara he stated that the Decadron should improve the viral swelling that the patient is experiencing. Patient strep and mono test came back negative his white count on his CBC was negative. Patient was giving the medications in the ER and discharged home with prescription for Decadron as per recommendation. Patient was also sent home with prescription for Magic mouthwash and instructions on salt and soda gargles. - Vital Signs Vital signs: Temp Pulse Resp BP Pulse Ox 98.6 F 56 L 116/83 100 11/05/17 11:30 11/05/17 11:30 11/05/17 11:30 11/05/17 11:30 - Laboratory Result Diagrams: 11/05/17 12:08 11/05/17 12:08 Laboratory results interpreted by me: 11/05/17 11/05/17 12:08 12:08 RBC 6.61 H MCV 71 L MCH 22.2 L MCHC 31.4 L RDW 14.5 H Seg Neutrophils % 31.9 L Monocytes % 17.6 H ESR 16 H C-Reactive Protein 30.3 H Total Protein 8.5 H - Diagnostic Test Radiology reviewed: Image reviewed, Reports reviewed Discharge - Discharge Clinical Impression: Tonsillitis, Enlarged uvula, Viral sore throat Condition: Stable Disposition: HOME, SELF-CARE Additional Instructions: SORE THROAT: Sore throats may be caused by viruses, bacteria, or fungi. Most are due to a virus, and must get better on their own. Bacterial sore throats, particularly those due to "strep," need treatment with antibiotics. If an antibiotic is prescribed, be sure to take the medication for a full 10 days. Failure to take the antibiotic can result in complications such as rheumatic fever. Sometimes, an injection of antibiotics is given instead of pills or liquid. This single "shot" is equal in effectiveness to the oral medication. To relieve symptoms, take acetaminophen for pain. Sip clear liquids frequently, or eat popsicles or ice chips. Anesthetic sprays or lozenges may help. Make sure the air in the room is not too dry. Avoid using decongestants or antihistamines. Call the doctor if there is no improvement in two days, or if you have difficulty breathing, increasing throat pain, high fever, rash, or frequent vomiting. STEROID MEDICATION: You were given Decadron in the emergency room to your IV, you will be given 2 days worth of p.o. Decadron that she needs to take 8 mg tomorrow 8 mg the next day You have been given a medicine of the cortisone/steroid class. This medication is used to control inflammation or allergy. It is usually only given for a short period of time, until the acute process subsides. There are usually no side effects from short-term use of cortisone-like medications. Some persons feel an increased sense of well-being and are not sleepy at bedtime. Long-term use of cortisone medications is best avoided, unless required for a severe condition. If your condition does not remit, or relapses after the course of corticosteroid medication, you should consult your physician. Salt and soda solution 1 quart of water 1 tablespoon of salt 1 teaspoon of baking soda Mixed 3 ingredients together and boil for 1 minute Placed in a covered quart jar Use 1/2 ounce of cold solution to gargle 3 times a day Please by 4 cheap toothbrushes and throw them away every night after you brushed your teeth. I have written you a prescription for Magic mouthwash and has medications that will help with the sore patches on your tongue. FOLLOW-UP CARE: If you have been referred to a physician for follow-up care, call the physician s office for an appointment as you were instructed or within the next two days. If you experience worsening or a significant change in your symptoms, notify the physician immediately or return to the Emergency Department at any time for re-evaluation. Prescriptions: Dexamethasone [Decadron 4 Mg Tablet] 8 mg PO DAILY #4 tablet Nystatin/Dexameth/Diphen [Magic Mouthwash ([facility] Formula) Susp] 5 ml PO QID #120 ml Referrals: AZALEA RUBIO MD [Primary Care Provider] - Follow up tomorrow
== END 2017-11-05 13:58 | disposition home or self-care (01) ==
LOC: ER 11:25
DX: J02.8 Acute pharyngitis due to other specified organisms (principal); B97.89 Other viral agents as the cause of diseases classified elsewhere; R13.10 Dysphagia, unspecified; Z86.11 Personal history of tuberculosis; R09.82 Postnasal drip
CPT/HCPCS: 99284; 96372; 96361; 96374; 36415; 87040; 87070; 87880; 85025; 85652; 86140; 87077; 86308; 80053; 70491; J1885; J7120; J1100

== ENCOUNTER 2017-12-18 23:35 | Emergency (ER) | payer SELFPAY | END 2017-12-18 23:39 | disposition left against medical advice (07) | LOC: ER 23:35 | DX: Z53.21 Procedure and treatment not carried out due to patient leaving prior to being seen by health care provider (principal) ==

== ENCOUNTER 2018-04-13 | Emergency (ER) | payer SELFPAY ==
[2018-04-13] MEDS ORDERED: CEFTRIAXONE INJ 250 MG VIAL IM ONE (02:01)
[2018-04-13] MEDS ORDERED: AZITHROMYCIN 250 MG TABLET PO ONE (02:01)
[2018-04-13] MEDS ORDERED: LIDOCAINE 1% INJ (10 MG/ML) 10 ML MDV INJ ONE (02:03)
--- NOTE | 2018-04-13 02:07 | ER Document Report ---
HPI - HPI Patient complains to provider of: high risk sexual contact Time Seen by Provider: 04/13/18 01:46 Pain Level: Denies Context: Winnie 28-year-old male presents to the emergency department for concern for sexually transmitted infection after high risk contact about 1 month ago. Patient states he had a heterosexual encounter and is concerned that he may have gotten chlamydia or gonorrhea. He has been with 2 other partners since. He has let them know. He has no urinary complaints, no fever, no other symptoms. Past Medical History - Social History Smoking Status: Never Smoker Chew tobacco use (# tins/day): No Frequency of alcohol use: Occasional Drug Abuse: None Family History: Malignancy. denies: Arthritis, CAD, COPD, CVA, DM, Hyperlipidemia, Hypertension, Thyroid Disfunction Patient has suicidal ideation: No Patient has homicidal ideation: No Pulmonary Medical History: Reports: Hx Tuberculosis - as child Renal/ Medical History: Denies: Hx Peritoneal Dialysis - Immunizations Immunizations up to date: Yes Hx Diphtheria, Pertussis, Tetanus Vaccination: Yes Vertical Provider Document - CONSTITUTIONAL Notes: Reviewed vital signs and nursing note as charted by RN. CONSTITUTIONAL: Well-appearing, well-nourished, acting appropriately for age HEAD: Normocephalic, atraumatic, no swelling EYES: PERRL, Conjunctivae clear, no drainage, EOMI, no scleral icterus ENT: External ears without lesions, airway patent, mucous membranes pink and moist CARD: Regular rate and rhythm, no murmurs, no rubs, no gallops, capillary refill < 2 seconds, symmetric pulses RESP: The lungs are clear to auscultation bilaterally, no wheezing, no rales, no rhonchi. Respiratory rate and effort are normal, normal chest excursion. No respiratory distress, no retractions, no stridor, no nasal flaring, no accessory muscle use. EXT: Normal ROM in all joints, non-tender to palpation, no effusions, no edema SKIN: Normal color for age and race, warm, dry, good turgor, no acute lesions noted NEURO: No facial asymmetry, moves all extremities equally, motor and sensory function intact - INFECTION CONTROL TRAVEL OUTSIDE OF THE [place] IN LAST 30 DAYS: No Course - Re-evaluation Re-evalutation: 04/13/18 02:08 Winnie 28-year-old male presents the emergency department for concern for STD after high risk contact. He states the contact was 1 month ago and he is concerned that he might have an STD. Patient denies any urinary symptoms, abnormal discharge from his urethra, fevers, or any infectious symptoms. Chlamydia and gonorrhea patient is PCR testing via urinalysis completed and pending. Patient said he wants to be treated preemptively and he will follow-up for results. Patient is overall well-appearing and is stable for discharge. 04/13/18 02:09 Discharge - Discharge Clinical Impression: Sexually transmitted disease counseling High risk sexual behavior Qualifiers: High risk sexual behavior type: heterosexual Qualified Code(s): Z72.51 - High risk heterosexual behavior Condition: Good Disposition: HOME, SELF-CARE Additional Instructions: Your were seen in the emergency department this evening for concern for sexually transmitted disease. Because results take a little while we have treated you prophylactically to your wishes. You were given Rocephin 250 mg by shot and 2 tablets of a medication called a azithromycin. That will treat chlamydia and gonorrhea. Because your test results are still pending you can follow-up and call tomorrow morning for the results. If you notice any abnormal discharge coming from your penis, pain with urination, or you have any other concerning symptoms like fever or infection please come back to the emergency department. Please let your partner know if you do have a positive result she can get treated.
[2018-04-13 02:16] VITALS: BP 108/76
[2018-04-13 02:43] LABS: CHLAM PCR DETECTED (NOT DETECT); GON PCR DETECTED (NOT DETECT)
== END 2018-04-13 02:25 | disposition home or self-care (01) ==
LOC: ER
DX: Z20.2 Contact with and (suspected) exposure to infections with a predominantly sexual mode of transmission (principal); Z72.51 High risk heterosexual behavior
CPT/HCPCS: 99284; 87491; 87591; J0696